=== PATIENT | female | born 1950 | race Caucasian/White ===

== ENCOUNTER 2020-12-14 08:34 | Day surgery (SDC) | payer OTHER ==
[~2020-12-14] VITALS: Ht 152.4 cm; Wt 66.0 kg
[~2020-12-14 08:34] MED LIST: BUPROPION XL150 M1 PO; CODACE30 PO; MONT10T PO; OMEP20ER PO; VERA120 PO; Voltaren100 GM TOP; XYZAL5 MG PO; ZOLP5 PO
[2020-12-14] MEDS ORDERED: TRAZ50 (08:54)
[2020-12-14] MEDS ORDERED: 1/2 NS 250ml250 ML (08:55)
--- NOTE | 2020-12-14 10:54 | NUR ---
12/14/20 1054 Keke Slater PT AWAKE ON ARRIVAL TO RECOVERY. PT DIRECTLY TO SDU. OK PER DR. MOJIAC. VSS.
== END 2020-12-14 11:58 | disposition home or self-care (01) ==
LOC: ORSCSDS 08:34
PROVIDERS: Orthopaedic Surgery
PROC: 0RQS0ZZ Repair Right Carpometacarpal Joint, Open Approach (ICD-10-PCS; principal; 2020-12-14 10:00)
PROC: 0LX70ZZ Transfer Right Hand Tendon, Open Approach (ICD-10-PCS; principal; 2020-12-14 10:00)
DX: M18.11 Unilateral primary osteoarthritis of first carpometacarpal joint, right hand (principal); I10 Essential (primary) hypertension; I48.91 Unspecified atrial fibrillation; J44.9 Chronic obstructive pulmonary disease, unspecified; Z87.891 Personal history of nicotine dependence; K21.9 Gastro-esophageal reflux disease without esophagitis; Z79.899 Other long term (current) drug therapy
CPT/HCPCS: A9270; C1713; J0690; J1100; J1885; J2250; J2405; J2704; J2795; J3010; J7120

== ENCOUNTER 2021-08-02 07:46 | Day surgery (SDC) | payer OTHER ==
[~2021-08-02] VITALS: Ht 152.4 cm; Wt 67.5 kg
[~2021-08-02 07:46] MED LIST changes: +1/2 NS 250ml250 ML; +TRAZ50
== END 2021-08-02 11:42 | disposition home or self-care (01) ==
LOC: ORSCSDS 07:46
PROVIDERS: Orthopaedic Surgery
PROC: 0LX80ZZ Transfer Left Hand Tendon, Open Approach (ICD-10-PCS; principal; 2021-08-02 09:00)
PROC: 0XQM0ZZ Repair Left Thumb, Open Approach (ICD-10-PCS; principal; 2021-08-02 09:00)
PROC: 0LU807Z Supplement Left Hand Tendon with Autologous Tissue Substitute, Open Approach (ICD-10-PCS; principal; 2021-08-02 09:00)
PROC: 0LB80ZZ Excision of Left Hand Tendon, Open Approach (ICD-10-PCS; principal; 2021-08-02 09:00)
PROC: 0RGV04Z Fusion of Left Metacarpophalangeal Joint with Internal Fixation Device, Open Approach (ICD-10-PCS; principal; 2021-08-02 09:00)
DX: M19.042 Primary osteoarthritis, left hand (principal); M18.12 Unilateral primary osteoarthritis of first carpometacarpal joint, left hand; Z87.891 Personal history of nicotine dependence; I10 Essential (primary) hypertension; I48.91 Unspecified atrial fibrillation; J44.9 Chronic obstructive pulmonary disease, unspecified; F41.8 Other specified anxiety disorders; Z79.899 Other long term (current) drug therapy; K21.9 Gastro-esophageal reflux disease without esophagitis
CPT/HCPCS: C1713; C1769; J0690; J1100; J1885; J2250; J2405; J2704; J2795; J3010; J7120

== ENCOUNTER → 2023-11-21 | Outpatient (CLI) | payer OTHER ==
[~2023-11-21] MED LIST changes: +ALEN70 PO; +DONE5 PO; +PRED FORTE5 M1 BOTHEYES; +RIZATRIPTAN10 M3 PO
== END | disposition home or self-care (01) ==
LOC: LAB SHORT 10:40 → LAB 10:40
DX: N39.0 Urinary tract infection, site not specified (principal); R31.9 Hematuria, unspecified
CPT/HCPCS: 87086